=== PATIENT | male | born 1990 | race Two or more races ===

== ENCOUNTER 2021-03-05 09:30 | Outpatient (CLI) | payer OTHER | END 2021-03-05 09:36 | disposition home or self-care (01) | LOC: SONOGRAMA 09:30 | PROVIDERS: ATTEND Pathology Anatomic Pathology & Clinical Pathology | DX: E04.2 Nontoxic multinodular goiter (principal) ==

== ENCOUNTER 2022-07-31 20:35 | Emergency (ER) | payer OTHER ==
[~2022-07-31] VITALS: Ht 185.4 cm; Wt 89.8 kg
[2022-07-31] MEDS ORDERED: SYNTHROID175 MCG PO (21:03)
[2022-07-31] MEDS ORDERED: ROCALTROL0.25 MCG PO (21:03)
[2022-07-31] MEDS ORDERED: KETO10TA2 PO (23:34)
[2022-07-31] MEDS ORDERED: NORFLEX100MG PO (23:34)
== END 2022-07-31 23:45 | disposition home or self-care (01) ==
LOC: ER 20:35
DX: M51.26 Other intervertebral disc displacement, lumbar region (principal)